=== PATIENT | male | born 1970 | race Asian ===

== ENCOUNTER 2023-10-25 06:25 | Day surgery (SDC) | payer OTHER ==
[~2023-10-25] VITALS: Ht 182.9 cm; Wt 110.9 kg
[2023-10-25] MEDS ORDERED: SIMETHICONE 40 MG/0.6 ML ML ONE (07:09)
[2023-10-25] MEDS ORDERED: MIDAZOLAM HCL 5 MG/5 ML VIAL ONE ×2 (07:10→08:56)
[2023-10-25] MEDS ORDERED: MEPERIDINE 100 MG INJ. 100 MG/ML VIAL ONE (07:10)
[2023-10-25] MEDS ORDERED: DIPHENHYDRAMINE INJ 50 MG/ML VIAL ONE ×2 (08:55)
[2023-10-25 13:25] VITALS: O2SAT 97
[2023-10-25 15:19] VITALS: BP_SYST 136; PULSE 84; RESP 13
== END 2023-10-25 09:58 | disposition home or self-care (01) ==
LOC: SMU 06:25 → SDS 06:25
PROVIDERS: ATTEND Internal Medicine Gastroenterology
DX: R19.4 Change in bowel habit (principal); D12.2 Benign neoplasm of ascending colon; K64.8 Other hemorrhoids; E78.5 Hyperlipidemia, unspecified; R10.9 Unspecified abdominal pain; M10.9 Gout, unspecified; Z87.891 Personal history of nicotine dependence; Z90.49 Acquired absence of other specified parts of digestive tract; Z86.010 Personal history of colon polyps; Z80.0 Family history of malignant neoplasm of digestive organs
CPT/HCPCS: 45385; 88305; 99153; 99152; G0378; J1200; J2250; J2175